=== PATIENT | female | born 2000 | race African-American/Black ===

== ENCOUNTER 2023-01-22 15:42 | Emergency (ER) | payer OTHER ==
[~2023-01-22] VITALS: Ht 167.6 cm; Wt 68.0 kg
[~2023-01-22 15:42] MED LIST: CLARITIN5 MG/5 ML PO; ZITHROMAX200 MG/51 PO
[2023-01-22 15:57] VITALS: BP 128/75
[2023-01-22 17:10] LABS: BASO # 0.1 10*3/uL (0.0-0.1); BASO % 0.8 % (0.0-1.0); EOS # 0.1 10*3/uL (0.0-0.4); EOS % 0.8 % (1.0-4.0); HEMATOCRIT 33.7 % (37.0-47.0); LYMPH % 25.6 % (27.0-41.0); MEAN CELL VOLUME 66.7 fl (81.0-99.0); MEAN CORPUSCULAR HGB CONC 32.9 g/dl (33.0-37.0); MEAN PLATELET VOLUME 10.1 fl (9.6-12.3); MONO # 0.7 10*3/uL (0.1-1.0); MONO % 8.8 % (3.0-9.0); NEUT # 4.9 10*3/uL (2.3-7.9); NEUT % 63.6 % (47.0-73.0); PLATELET COUNT AUTOMATED 405 10*3/uL (130-400); RED BLOOD COUNT 5.05 10*6/uL (4.10-5.10); RED CELL DISTRI WIDTH 14.3 % (0-14.5); WHITE BLOOD COUNT 7.8 10*3/uL (4.8-10.8)
[2023-01-22 17:39] LABS: ALKALINE PHOSPHATASE 81 U/L (46-116); BUN 7 mg/dl (9-23); CHLORIDE 106 mmol/L (98-107); POTASSIUM 3.9 mmol/L (3.4-5.1); SGPT/ALT 16 U/L (10-49)
[2023-01-22] MEDS ORDERED: IBU800 M1 PO (17:52)
[2023-01-22] MEDS ORDERED: REGLAN10 M1 PO (17:52)
== END 2023-01-22 18:10 | disposition home or self-care (01) ==
LOC: ED 15:42
PROVIDERS: Emergency Medicine
DX: R51.9 Headache, unspecified (principal); Z88.8 Allergy status to other drugs, medicaments and biological substances

== ENCOUNTER 2023-07-24 09:37 | Emergency (ER) | payer OTHER ==
[~2023-07-24] VITALS: Ht 165.1 cm; Wt 72.1 kg
[~2023-07-24 09:37] MED LIST changes: +IBU800 M1 PO; +REGLAN10 M1 PO
[2023-07-24 09:50] VITALS: BP 119/75
[2023-07-24] MEDS ORDERED: AMOX-CLAV 875-1 EACH PO (09:57)
[2023-07-24] MEDS ORDERED: Ketorolac Tromethamine 60 MG/2 ML VIAL IM ONE (10:00)
== END 2023-07-24 10:10 | disposition home or self-care (01) ==
LOC: ED 09:37
DX: K04.7 Periapical abscess without sinus (principal); F17.210 Nicotine dependence, cigarettes, uncomplicated; Z79.899 Other long term (current) drug therapy

== ENCOUNTER → 2023-08-19 | Outpatient (CLI) | payer OTHER ==
[~2023-08-19] MED LIST changes: +AMOX-CLAV 875-1 EACH PO
== END | disposition home or self-care (01) ==
LOC: LAB 10:24
PROVIDERS: ATTEND Family Medicine
DX: D50.9 Iron deficiency anemia, unspecified (principal); L68.0 Hirsutism; N92.6 Irregular menstruation, unspecified

== ENCOUNTER 2023-12-15 10:29 | Emergency (ER) | payer OTHER ==
[~2023-12-15] VITALS: Ht 167.6 cm; Wt 81.6 kg
[2023-12-15 10:48] VITALS: BP 130/69
[2023-12-15] MEDS ORDERED: AMOX-CLAV 875-1 EACH PO (11:18)
== END 2023-12-15 11:26 | disposition home or self-care (01) ==
LOC: ED 10:29
DX: K04.7 Periapical abscess without sinus (principal)